=== PATIENT | male | born 1950 | race Caucasian/White ===

== ENCOUNTER → 2021-08-15 | Outpatient (CLI) | payer OTHER | LOC: KOH-I 14:03 | DX: Z09 Encounter for follow-up examination after completed treatment for conditions other than malignant neoplasm (principal); Z87.891 Personal history of nicotine dependence; R91.8 Other nonspecific abnormal finding of lung field | CPT/HCPCS: 71271 ==

== ENCOUNTER → 2021-11-05 | Outpatient (CLI) | payer OTHER | LOC: KOH-I 12:30 | DX: R91.1 Solitary pulmonary nodule (principal) | CPT/HCPCS: 71250 ==

== ENCOUNTER → 2022-02-12 | Outpatient (CLI) | payer OTHER | LOC: KOH-I 02-04 15:30 | DX: R91.1 Solitary pulmonary nodule (principal); K80.80 Other cholelithiasis without obstruction; R91.8 Other nonspecific abnormal finding of lung field | CPT/HCPCS: 71250 ==